=== PATIENT | female | born 1975 | race Hispanic/Latino ===

== ENCOUNTER 2024-02-13 20:31 | Emergency (ER) | payer SELFPAY ==
[2024-02-13 20:34] VITALS: BP 185/91
[2024-02-13 22:01] VITALS: BP 111/68
--- NOTE | 2024-02-13 23:49 | ED.GENMED ---
History of Present Illness
General
Chief Complaint: Head Injury
Source: patient and family
Exam Limitations: none
Time Seen by Provider: 02/13/24 21:01
Nursing documentation reviewed up to this point in time: agreed with
History of Present Illness
History of Present Illness:
Patient states a pipe fell at work and hit her on the back of her head. No LOC. Complains of headache Brought to ED by family for eval. 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
Past History
Past History
ED Past Medical History: None
ED Past Surgical History: Gynecological (Tubal ligation)
Social History
Tobacco: Non-smoker
Alcohol: None
Drug: None
Review of Systems
Review of Systems
Allergies reviewed?: Yes
All Other Systems: ROS reviewed and negative except as documented in HPI and ROS
Constitutional: Reports no symptoms
EENT: Reports no symptoms
Respiratory: Reports no symptoms
Cardiac: Reports no symptoms
ABD/GI: Reports no symptoms
: Reports no symptoms
Musculoskeletal: Reports no symptoms
Skin: Reports no symptoms
Neurological: Reports headache
Psychiatric: Reports no symptoms
Phy Exam
General Physical Exam
General Presentation: well appearing and no apparent distress
General age: appears stated age
General Skin: warm and dry
General Habitus: normal
Eye Exam
Eye Exam: PERRL, EOMI and conjunctiva normal
Neurological Exam
Neurological Exam: alert, oriented x3, CN II-XII intact, no motor deficits, no sensory deficits, speech normal and normal gait
Musculoskeletal Exam
Musculoskeletal Exam: full ROM and neuro vasc intact
Skin Exam
Skin Exam: normal color, warm/dry and no rash
Psychiatric Exam
Psychiatric Exam: normal mood/affect
Course
Orders/Labs/Results
Orders:
Orders
02/13/24 20:[address] [CT Head W/o Iv Contrast] Urgent
Comment:
Reason For Exam: head injury.
Vital Signs
Initial and Last Documented VS:
Initial Vital Signs
Temp Pulse Resp BP Pulse Ox
98.2 F 58 16 185/91 99
02/13/24 20:34 02/13/24 20:34 02/13/24 20:34 02/13/24 20:34 02/13/24 20:34
Last Documented Vital Signs
Temp Pulse Resp BP Pulse Ox
98.2 F 54 18 111/68 98
02/13/24 20:34 02/13/24 22:01 02/13/24 22:01 02/13/24 22:01 02/13/24 22:01
*Radiology
Radiology exam reviewed: radiology read reviewed
*Pulse Oximetry
Patient hypoxic: no
*Critical Care Note
Total Time (30-74mins, 75-104mins- exclusive of procedures): Not Applicable
ED Attending Note
-
Portions of this chart may have been created with voice recognition software.� Occasional wrong word or��sound alike� substitutions may have occurred due to the inherent limitations of voice recognition software.
Discharge Plan
Departure
Patient Disposition: Home (Routine Discharge)
Date of Disposition: 02/13/24
Time of Disposition: 21:24
Patient with high blood pressure during this ER visit?: No
Condition: Good
Covid-19: Not Applicable
Discharge Problem:
Head injury
Instructions: Concussion, Adult (DC), Head Injury in Adults (DC), Contusion (DC)
Prescriptions:
No Action
cyclobenzaprine 10 MG tablet
10 mg PO TIDPRN PRN (Reason: pain) Qty: 12 0RF
meclizine 25 MG tablet
25 mg PO Q8HPRN PRN (Reason: nausea or vertigo) Qty: 12 0RF
ondansetron 4 MG tablet,disintegrating
4 mg PO TIDPRN PRN (Reason: nausea) Qty: 12 0RF
oxycodone-acetaminophen 5 MG/325 MG tablet
1 tab PO Q4HPRN PRN (Reason: pain) 2 Days Qty: 5 0RF
Stand Alone Forms: Return to Work
Activity Restrictions/Additional Instructions:
Follow up with your workman's comp provider on Friday,
Interventions
Interventions:
*Risk Screen - Suicide Last Done: 02/13/24 20:34
*General Assessment Last Done: 02/13/24 22:01
*Neglect/Abuse Screening Last Done: 02/13/24 22:01
ED- Fall Risk Assessment Last Done: 02/13/24 22:05
*ED COVID-19 Vaccine History Last Done: 02/13/24 22:01
*Nursing Disposition Last Done: 02/13/24 22:05
ED- Neurological Assessment Last Done: 02/13/24 22:01
ED-Skin Assessment Last Done: 02/13/24 22:01
Discharge Date and Time
Discharge Date/Time: 02/13/24 22:06
Print Language: SERBIAN
== END 2024-02-13 22:06 | disposition home or self-care (01) ==
LOC: EMR 20:31
PROVIDERS: EMERGENCY PHYSICIAN Student in an Organized Health Care Education/Training Program
DX: S09.90XA Unspecified injury of head, initial encounter (principal); R51.9 Headache, unspecified; W20.8XXA Other cause of strike by thrown, projected or falling object, initial encounter; Y93.89 Activity, other specified; Y92.89 Other specified places as the place of occurrence of the external cause; Y99.0 Civilian activity done for income or pay
CPT/HCPCS: 99284; 70450